=== PATIENT | female | born 1985 ===

== ENCOUNTER 2023-12-26 20:13 | Emergency (ER) | payer OTHER, SELFPAY ==
[2023-12-26 20:20] VITALS: BP 133/95
[2023-12-26 21:37] VITALS: BMI 25.7
[2023-12-26 21:45] VITALS: BP 120/73
--- NOTE | 2023-12-26 22:06 | ED.GENMED ---
History of Present Illness
General
Chief Complaint: Back Pain
Source: patient
Exam Limitations: none
Time Seen by Provider: 12/26/23 21:53
Nursing documentation reviewed up to this point in time: agreed with
History of Present Illness
History of Present Illness:
Patient is a 38-year-old male who is visiting family from [place] with history of sciatica presents to the ER complaining of low back pain radiating to right leg. She has had this in the past in fact had an injection in her back for this 4 months
ago. This started yesterday. She did take ibuprofen yesterday but nothing today. She denies any bowel or bladder incontinence. She denies any recent fever or chills. She denies any numbness tingling weakness in lower extremities. She is
staying here until the end of the week and then going back to [place].
LMP presently
Review of Systems
Review of Systems
Allergies reviewed?: Yes
All Other Systems: ROS reviewed and negative except as documented in HPI and ROS
Constitutional: Reports no symptoms
Cardiac: Reports no symptoms
ABD/GI: Reports no symptoms
: Reports no symptoms; Denies incontinence
Musculoskeletal: Reports back pain (Low back pain rating to right leg)
Skin: Reports no symptoms
Neurological: Reports no symptoms
Psychiatric: Reports no symptoms
Phy Exam
General Physical Exam
General Presentation: no apparent distress
General age: appears stated age
General Skin: warm and dry
General Habitus: normal
General Mental: alert
General Hydration: appears well hydrated
Neurological Exam
Neurological Exam: alert, oriented x3, no motor deficits, normal reflexs, no sensory deficits and other (Normal dorsiflexion plantarflexion + straight leg raise )
Musculoskeletal Exam
Musculoskeletal Exam: other (Normal inspection to lower backer up throughout the lumbar area normal lower extremity exam)
Course
Orders/Labs/Results
Orders:
Orders
12/26/23 22:04
Dexamethasone Sod Phosphate [Decadron] 10 mg IM NOW STA
diazePAM [Valium Injection] 5 mg IM NOW STA
12/26/23 22:05
Ibuprofen [Motrin] 600 mg PO NOW STA
Lidocaine [Lidocaine 4% Patch] 1 patch TOPICAL NOW STA
Apply Lidocaine patch(s) to:: lower back
Vital Signs
Initial and Last Documented VS:
Initial Vital Signs
Temp Pulse Resp BP Pulse Ox
98.1 F 86 24 133/95 100
12/26/23 20:20 12/26/23 20:20 12/26/23 20:20 12/26/23 20:20 12/26/23 20:20
Last Documented Vital Signs
Temp Pulse Resp BP Pulse Ox
98.1 F 81 16 120/73 96
12/26/23 20:20 12/26/23 21:45 12/26/23 21:45 12/26/23 21:45 12/26/23 21:45
MDM/Problems Addressed
Differential Diagnosis Includes:
Not limited to sciatica, low back pain
MDM/Problems Addressed:
Symptoms are consistent with sciatica. Patient has had this in the past she had injection 4 months ago in [place] she is visiting. This is similar to her previous sciatica. She denies any fevers on exam she has no deficits neurologically. She was
given Valium steroid and lidocaine patch feeling much better now able to sit up and much more comfortable. Will send with a prescription for Flexeril as well as steroids with close outpatient followed by her family doctor when she gets back to [facility]
[place] next week. She is to return if any worsening of symptoms.
*Critical Care Note
Total Time (30-74mins, 75-104mins- exclusive of procedures): Not Applicable
ED Attending Note
-
Portions of this chart may have been created with voice recognition software.� Occasional wrong word or��sound alike� substitutions may have occurred due to the inherent limitations of voice recognition software.
Discharge Plan
Departure
Patient Disposition: Home (Routine Discharge)
Date of Disposition: 12/26/23
Time of Disposition: 23:20
Patient with high blood pressure during this ER visit?: Yes
Condition: Fair
Covid-19: Not Applicable
Discharge Problem:
Low back pain, Sciatica
Instructions: Low Back Pain (DC), Sciatica (DC), BLOOD PRESSURE
Prescriptions:
New
cyclobenzaprine 10 mg tablet
10 mg PO TID PRN (Reason: muscle spasm) Qty: 10 0RF
prednisone 10 mg Tablet
See Rx Instructions .ROUTE .COMPLEX Qty: 30 0RF
Rx Instructions:
Take By Mouth:
40 mg daily x3 days, 30 mg daily x3 days,
20 mg daily x3 days, 10 mg daily x3 days.
Referrals:
UNKNOWN - PT DOES,NOT KNOW [Family Provider] -
Activity Restrictions/Additional Instructions:
As discussed a prescription for steroid was sent to your pharmacy take as directed. In addition a prescription for muscle relaxer was sent to your pharmacy take only as directed. This will cause drowsiness. No driving or drink alcohol taking this
medication. No lifting. You may do gentle walking. Follow-up with your family doctor when you go back to [place]. Return if any worsening of symptoms if increased pain if loss of bowel or bladder weakness in legs or any further concerns
Interventions
Interventions:
*Risk Screen - Suicide Last Done: 12/26/23 21:37
*General Assessment Last Done: 12/26/23 21:37
*Neglect/Abuse Screening Last Done: 12/26/23 21:37
ED- Fall Risk Assessment Last Done: 12/26/23 21:37
*ED COVID-19 Vaccine History Last Done: 12/26/23 21:37
ED-Musculoskeletal Assessment Last Done: 12/26/23 21:37
Discharge Date and Time
Print Language: NIGERIAN
[2023-12-26] MEDS: LIDOCAINE 4% PATCH 1 PATCH TOPICAL (22:27)
[2023-12-26] MEDS: DECADRON 10 MG IM (22:28)
[2023-12-26] MEDS: MOTRIN 600 MG PO (22:28)
[2023-12-26] MEDS: VALIUM INJECTION 5 MG IM (22:28)
== END 2023-12-26 23:31 | disposition home or self-care (01) ==
LOC: EMR 20:13
PROVIDERS: EMERGENCY PHYSICIAN Student in an Organized Health Care Education/Training Program
DX: M54.40 Lumbago with sciatica, unspecified side (principal)
CPT/HCPCS: 99282; 96372